=== PATIENT | male | born 1970 | race Two or more races ===

== ENCOUNTER 2020-12-31 17:59 | Emergency (ER) | payer SELFPAY ==
[~2020-12-31] VITALS: Ht 170.2 cm; Wt 101.0 kg
--- NOTE | 2020-12-31 18:10 | NUR ---
PT BIB EMS WITH C/O CHEST PAIN AND ANXIETY. PT STATES HE HAS A "WEIRD FEELING IN HIS HEAD LIKE ELECTRICITY RUNNING THROUGH IT." MD ASSESSED PT BEDSIDE, EKG DONE.
[2020-12-31] MEDS ORDERED: LORazepam 1MG TABLET ONE (18:21)
[2020-12-31] MEDS ORDERED: LORazepam 1MG TABLET PO ONE (18:30)
[2020-12-31 18:32] LABS: BASOPHILS % (AUTO) 1 % (0-1); EOSINOPHILS % (AUTO) 3 % (1-7); LYMPHOCYTES % (AUTO) 25 % (22-44); MEAN CORPUSCULAR HEMOGLOBIN 31.1 pg (27.5-34.5); MEAN CORPUSCULAR HGB CONC 33.3 g/dL (33.2-36.2); MEAN PLATELET VOLUME 7.6 fL (7.4-10.4); MONOCYTES % (AUTO) 7 % (2-9); NEUTROPHILS % (AUTO) 65 % (42-75); PLATELET COUNT 254 x10^3/uL (130-400); RED BLOOD COUNT 4.42 x10^6/uL (4.38-5.82); RED CELL DISTRIBUTION WIDTH 14.4 % (9.4-14.8)
[2020-12-31 18:44] LABS: ALBUMIN 3.4 g/dL (3.4-5.0); ANION GAP 6 mmol/L (5-15); CALCIUM 8.3 mg/dL (8.5-10.1); CHLORIDE 107 mmol/L (98-107)
[2020-12-31 18:50] LABS: ALANINE AMINOTRANSFERASE 21 U/L (12-78); ALKALINE PHOSPHATASE 101 U/L (45-117); BILIRUBIN,TOTAL 0.3 mg/dL (0.2-1.0); TOTAL PROTEIN 7.1 g/dL (6.4-8.2); TROPONIN I < 0.015 ng/mL (0.000-0.045)
--- NOTE | 2020-12-31 19:54 | NUR ---
REPOSITIONED PT. PT STATES HE IS FEELING BETTER NOW. RESTING COMFORTABLY ON GURNEY
[2020-12-31] MEDS ORDERED: ENALAPRIL 10 MG TABLET PO ONE (20:30)
[2020-12-31 21:34] VITALS: BP 175/100
== END 2020-12-31 22:55 | disposition home or self-care (01) ==
LOC: ED 18:45
DX: R07.89 Other chest pain (principal); I10 Essential (primary) hypertension; R94.31 Abnormal electrocardiogram [ECG] [EKG]; F17.200 Nicotine dependence, unspecified, uncomplicated
CPT/HCPCS: 36415; 71045; 80053; 83880; 84484; 85025; 93005; 99285

== ENCOUNTER 2021-01-05 03:42 | Emergency (ER) | payer MEDICAID, OTHER ==
[~2021-01-05] VITALS: Ht 170.2 cm; Wt 96.8 kg
[2021-01-05 03:45] VITALS: BP 179/112
== END 2021-01-05 06:47 | disposition home or self-care (01) ==
LOC: ED 06:35
DX: F41.1 Generalized anxiety disorder (principal); R07.89 Other chest pain
CPT/HCPCS: 93005; 99283